=== PATIENT | female | born 1995 | race Caucasian/White ===

== ENCOUNTER 2017-03-01 11:33 | Emergency (ER) | payer MEDICAID ==
[~2017-03-01] VITALS: Ht 167.6 cm; Wt 86.2 kg
[2017-03-01 12:13] VITALS: BP 121/67
--- NOTE | 2017-03-01 12:45 | NUR ---
Patient ambulated to bed 7. RN evaluating patient at bedside.
--- NOTE | 2017-03-01 12:50 | NUR ---
21 F BIB FRIEND C/O 11/20 "SHARP" RIGHT SIDED BODY PAIN X3 DAYS WITH NAUSEA; PT DENIES ANY FALL OR INJURY;PT DENIES ANY V/D OR ABD PAIN; SKIN IS PINK/WARM/DRY; AAOX4 WITH EVEN AND STEADY RR ARE EVEN AND UNLABORED; VSS; PATIENT POSITIONED FOR COMFORT; HOB ELEVATED; BEDRAILS UP X2; BED DOWN. ER MD MADE AWARE OF PT STATUS.
[2017-03-01] MEDS ORDERED: KETOROLAC 60 MG/2 ML VIAL IM ONE (13:15)
[2017-03-01] MEDS ORDERED: ONDANSETRON 4 MG ODT PO ONE (13:15)
[2017-03-01 13:35] LABS: BASOPHILS # (AUTO) 0.3 K/uL (0.00-0.22); EOSINOPHILS # (AUTO) 0.1 K/uL (0-0.4); EOSINOPHILS % (AUTO) 1.3 % (0.0-4.0); HEMATOCRIT 41.4 % (36-48); LYMPHOCYTES # (AUTO) 1.9 K/uL (2.5-16.5); LYMPHOCYTES % (AUTO) 24.7 % (20.5-51.1); MEAN CORPUSCULAR HEMOGLOBIN 31 pg (27-31); MEAN CORPUSCULAR HGB CONC 34 g/dL (33-37); MEAN CORPUSCULAR VOLUME 93 fL (80-94); MONOCYTES # (AUTO) 0.4 K/uL (0.8-1.0); MONOCYTES % (AUTO) 5.4 % (1.7-9.3); NEUTROPHILS % (AUTO) 64.6 % (42.2-75.2); PLATELET COUNT (AUTO) 298 K/uL (140-450); RED BLOOD CELL COUNT(AUTO) 4.45 MIL/uL (4.20-5.40); RED CELL DISTRIBUTION WIDTH 11.7 % (11.6-13.7); WHITE BLOOD COUNT (AUTO) 7.7 K/uL (4.8-10.8)
[2017-03-01 13:44] LABS: ANION GAP 11.2 (8-16); CARBON DIOXIDE 27.5 mmol/L (21-32); CREATININE 0.7 mg/dL (0.6-1.3); POTASSIUM 3.7 mmol/L (3.5-5.1)
[2017-03-01 13:52] LABS: ALBUMIN 3.9 g/dL (3.4-5.0); TOTAL BILIRUBIN 0.3 mg/dL (0.0-1.0)
[2017-03-01 14:44] VITALS: BP 122/70
== END 2017-03-01 14:44 | disposition home or self-care (01) ==
LOC: MED 11:33
DX: M25.50 Pain in unspecified joint (principal); R03.0 Elevated blood-pressure reading, without diagnosis of hypertension; R11.0 Nausea; Z88.0 Allergy status to penicillin; Z88.1 Allergy status to other antibiotic agents
CPT/HCPCS: 36415; 80053; 85025; 96372; 99284; J1885; S0119